=== PATIENT | male | born 1965 | race Two or more races ===

== ENCOUNTER 2019-06-01 14:20 | Emergency (ER) | payer OTHER ==
[~2019-06-01] VITALS: Ht 180.3 cm; Wt 90.7 kg
[2019-06-01] MEDS ORDERED: LOSARTAN POTAS100 MG (15:57)
== END 2019-06-01 21:03 | disposition home or self-care (01) ==
LOC: ER 14:20
DX: J45.998 Other asthma (principal); B34.9 Viral infection, unspecified